=== PATIENT | female | born 1960 | race Caucasian/White ===

== ENCOUNTER 2016-09-16 10:14 | Emergency (ER) | payer BC ==
[~2016-09-16 10:14] MED LIST: ALEVE220 M1 PO; CELEXA20 MG PO; FLEXERIL 1010 MG/TAB PO; FLONASE0.05 MG/AC NS; HCTZ/LISINOPRIL1 TA1 PO; KLONOPIN1 MG PO; LOW DOSE ASPIRI81 MG PO; MULTI VITAMINS1 TAB PO; PREDNISONE20 M1 PO; PRILOSEC 20MG20 MG PO; RT ALBUTEROL I6.8 GM IH; STOOL SOFTENER100 M1 PO; ZANTAC 150MG T150 MG PO; ZOCOR 40MG40 MG PO; ZYRTEC10 MG PO; [UNRECOGNIZED DRUG - OTHER] PO
[2016-09-16] MEDS ORDERED: NORCO 325 MG-51 TAB PO (11:42)
[2016-12-18] MEDS ORDERED: HYDROCHLOROTHIA1 T15 PO (08:54)
[2016-12-18] MEDS ORDERED: CELEXA 20MG20 MG/TA1 PO (08:55)
[2016-12-18] MEDS ORDERED: CYCLOBENZAPRINE10 M1 PO (08:55)
[2016-12-18] MEDS ORDERED: SIMVASTATIN40 M1 PO (08:55)
[2016-12-18] MEDS ORDERED: OMEPRAZOLE D/R20 MG PO (08:55)
== END 2016-09-16 12:00 | disposition home or self-care (01) ==
LOC: ED 10:14
DX: T20.10XA Burn of first degree of head, face, and neck, unspecified site, initial encounter (principal); X15.0XXA Contact with hot stove (kitchen), initial encounter; Y92.010 Kitchen of single-family (private) house as the place of occurrence of the external cause
CPT/HCPCS: J1885

== ENCOUNTER → 2016-11-27 | Outpatient (CLI) | payer BC ==
[2016-09-16 12:00] VITALS: BP 174/91
[~2016-11-27] MED LIST changes: +CELEXA 20MG20 MG/TA1 PO; +CYCLOBENZAPRINE10 M1 PO; +HYDROCHLOROTHIA1 T15 PO; +NORCO 325 MG-51 TAB PO; +OMEPRAZOLE D/R20 MG PO; +SIMVASTATIN40 M1 PO
== END ==
LOC: LAB 09:06
DX: K21.0 Gastro-esophageal reflux disease with esophagitis (principal)

== ENCOUNTER → 2016-12-18 | Outpatient (CLI) | payer BC ==
[2016-12-18 08:49] VITALS: BP 150/85
== END ==
LOC: AMSURD 08:14
DX: Z01.812 Encounter for preprocedural laboratory examination (principal); Z01.810 Encounter for preprocedural cardiovascular examination

== ENCOUNTER → 2017-03-12 | Outpatient (CLI) | payer BC ==
[2016-12-18 08:49] VITALS: BP 150/85
== END ==
LOC: RAD 08:24
DX: M25.561 Pain in right knee (principal); M17.11 Unilateral primary osteoarthritis, right knee

== ENCOUNTER → 2017-08-12 | Outpatient (CLI) | payer BC ==
[2016-12-18 08:49] VITALS: BP 150/85
[2017-08-12 08:55] LABS: EOS # 0.1 (0.04-0.40); EOS % 1.9 % (1.0-5.0); HEMATOCRIT 38.2 % (37.0-47.0); HEMOGLOBIN 12.2 g/dL (12.5-16.0); LYMPH# 2.1 (1.50-4.00); MEAN CELL VOLUME 89 fl (78-100); MEAN CORPUSCULAR HEMOGLOBIN 28 pg (27-31); MEAN CORPUSCULAR HGB CONC 32 g/dL (33-37); MEAN PLATELET VOLUME 9.1 fl (7.4-10.4); MONO # 0.5 (0.20-0.80); PLATELET COUNT 310 K/mm3 (130-400); RED BLOOD COUNT 4.31 M/mm3 (4.10-5.30); RED CELL DISTRIBUTION WIDTH 13.7 % (11.5-14.5); WHITE BLOOD COUNT 5.8 K/mm3 (4.8-10.8)
[2017-08-12 08:56] LABS: PROTHROMBIN TIME 9.9 SECONDS (9.0-12.0)
[2017-08-12 09:01] LABS: ALBUMIN 4.2 g/dL (3.5-5.0); BUN/CREATININE RATIO 21.2 (6.0-26.0); CALCIUM 9.4 mg/dL (8.4-10.2); POTASSIUM 3.9 mmol/L (3.6-5.0); TOTAL BILIRUBIN 0.4 mg/dL (0.2-1.3); TOTAL PROTEIN 7.1 g/dL (6.3-8.2)
[2017-08-12 09:10] LABS: URINE APPEARANCE CLEAR; URINE BILIRUBIN NEGATIVE (NEGATIVE); URINE BLOOD NEGATIVE (NEGATIVE); URINE COLOR YELLOW; URINE GLUCOSE NEGATIVE (NEGATIVE); URINE KETONE NEGATIVE (NEGATIVE); URINE LEUKOCYTE ESTERASE NEGATIVE (NEGATIVE); URINE MUCUS PRESENT (NOT PRESENT); URINE NITRATE NEGATIVE (NEGATIVE); URINE PROTEIN(semi-quant) NEGATIVE (NEGATIVE); URINE UROBILINOGEN NORMAL (NORMAL); URINE WBC 0-1 /hpf (0-3)
== END ==
LOC: LAB 08:31
PROVIDERS: Nurse Practitioner Family
DX: Z01.818 Encounter for other preprocedural examination (principal)

== ENCOUNTER → 2017-08-14 | Outpatient (CLI) | payer BC ==
[~2017-08-14] VITALS: Ht 162.6 cm; Wt 109.1 kg
[2017-08-14 12:02] VITALS: BP 159/90
== END ==
LOC: AMSURD 11:30
DX: Z01.818 Encounter for other preprocedural examination (principal)

== ENCOUNTER → 2017-08-22 | Outpatient (CLI) | payer BC ==
[2017-08-14 12:02] VITALS: BP 159/90
== END ==
LOC: LAB 07:16
DX: I10 Essential (primary) hypertension (principal)

== ENCOUNTER → 2017-08-30 | Outpatient (CLI) | payer BC ==
[2017-08-14 12:02] VITALS: BP 159/90
== END ==
LOC: PT 08-28 11:00
DX: Z01.818 Encounter for other preprocedural examination (principal); M17.11 Unilateral primary osteoarthritis, right knee

== ENCOUNTER → 2017-09-18 | Outpatient (CLI) | payer BC ==
[2017-08-14 12:02] VITALS: BP 159/90
== END ==
LOC: RAD 08:32
DX: Z96.651 Presence of right artificial knee joint (principal)

== ENCOUNTER 2017-11-08 10:00 | Outpatient (RCR) | payer BC ==
[2017-08-14 12:02] VITALS: BP 159/90
== END 2017-11-08 10:30 | disposition still patient (30) ==
LOC: PT 10:00
DX: Z47.1 Aftercare following joint replacement surgery (principal); Z96.651 Presence of right artificial knee joint

== ENCOUNTER → 2018-05-20 | Outpatient (CLI) | payer BC ==
[2017-08-14 12:02] VITALS: BP 159/90
[2018-05-20 07:28] LABS: EOS # 0.1 (0.04-0.40); EOS % 0.7 % (1.0-5.0); HEMATOCRIT 37.3 % (37.0-47.0); HEMOGLOBIN 12.4 g/dL (12.5-16.0); LYMPH# 2.6 (1.50-4.00); MEAN CELL VOLUME 88 fl (78-100); MEAN CORPUSCULAR HEMOGLOBIN 29 pg (27-31); MEAN CORPUSCULAR HGB CONC 33 g/dL (33-37); MEAN PLATELET VOLUME 8.9 fl (7.4-10.4); MONO # 0.9 (0.20-0.80); NEU # 7.1 (1.40-6.50); PLATELET COUNT 350 K/mm3 (130-400); RED BLOOD COUNT 4.23 M/mm3 (4.10-5.30); WHITE BLOOD COUNT 10.7 K/mm3 (4.8-10.8)
[2018-05-20 07:34] LABS: ALBUMIN 4.1 g/dL (3.5-5.0); CALCIUM 9.2 mg/dL (8.4-10.2); POTASSIUM 4.2 mmol/L (3.6-5.0); TOTAL BILIRUBIN 0.6 mg/dL (0.2-1.3); TOTAL PROTEIN 7.1 g/dL (6.3-8.2)
[2018-05-20 07:52] LABS: URINE APPEARANCE CLEAR; URINE BILIRUBIN NEGATIVE (NEGATIVE); URINE BLOOD NEGATIVE (NEGATIVE); URINE COLOR YELLOW; URINE GLUCOSE NEGATIVE (NEGATIVE); URINE KETONE NEGATIVE (NEGATIVE); URINE LEUKOCYTE ESTERASE TRACE (NEGATIVE); URINE NITRATE NEGATIVE (NEGATIVE); URINE PROTEIN(semi-quant) TRACE mg/dL (NEGATIVE); URINE UROBILINOGEN NORMAL (NORMAL)
== END ==
LOC: LAB 07:08
PROVIDERS: Family Medicine
DX: I10 Essential (primary) hypertension (principal); R73.9 Hyperglycemia, unspecified

== ENCOUNTER → 2018-05-21 | Outpatient (CLI) | payer BC ==
[2017-08-14 12:02] VITALS: BP 159/90
== END ==
LOC: MAMMO 15:15
DX: Z12.31 Encounter for screening mammogram for malignant neoplasm of breast (principal)

== ENCOUNTER 2018-06-04 13:30 | Outpatient (RCR) | payer BC ==
[2017-08-14 12:02] VITALS: BP 159/90
== END 2018-08-18 | disposition home or self-care (01) ==
LOC: PT
DX: Z47.1 Aftercare following joint replacement surgery (principal); Z96.651 Presence of right artificial knee joint

== ENCOUNTER → 2018-10-01 | Outpatient (CLI) | payer BC ==
[2017-08-14 12:02] VITALS: BP 159/90
== END ==
LOC: RAD 08:33
DX: R05 Cough (principal)

== ENCOUNTER 2018-10-09 17:56 | Emergency (ER) | payer BC ==
[~2018-10-09] VITALS: Ht 160 cm; Wt 112.7 kg
[2018-10-09] MEDS ORDERED: CEPHALEXIN500 M1 PO (19:01)
[2018-10-09 19:13] VITALS: BP 149/90
== END 2018-10-09 19:13 | disposition home or self-care (01) ==
LOC: ED 17:56
DX: S61.210A Laceration without foreign body of right index finger without damage to nail, initial encounter (principal); I10 Essential (primary) hypertension; W26.0XXA Contact with knife, initial encounter; Y92.009 Unspecified place in unspecified non-institutional (private) residence as the place of occurrence of the external cause

== ENCOUNTER → 2019-01-07 | Outpatient (CLI) | payer BC ==
[~2019-01-07] MED LIST changes: +CEPHALEXIN500 M1 PO
[2019-01-07 18:21] LABS: TESTOSTERONE <13 ng/dL (13-36)
[2019-01-07 19:05] LABS: T3 TOTAL 76 ng/dL (87-178)
[2019-01-07 19:14] LABS: ESTRADIOL <10 pg/mL (()); FOLLICLE STIMULATING HORMONE 52.4 mIU/mL (()); PROGESTERONE <0.1 ng/mL (())
== END ==
LOC: LAB 07:49
DX: Z01.89 Encounter for other specified special examinations (principal)

== ENCOUNTER → 2019-05-06 | Outpatient (CLI) | payer BC ==
[~2019-05-06] MED LIST changes: +ARMOUR THYROID30 M1 PO; +KLONOPIN 0.5MG0.5 MG PO; +VYVANSE30 MG PO
[2019-05-06 10:08] LABS: EOS # 0.1 (0.04-0.40); EOS % 1.8 % (1.0-5.0); HEMATOCRIT 35.6 % (37.0-47.0); HEMOGLOBIN 11.4 g/dL (12.5-16.0); LYMPH# 1.9 (1.50-4.00); MEAN CELL VOLUME 92 fl (78-100); MEAN CORPUSCULAR HEMOGLOBIN 29 pg (27-31); MEAN CORPUSCULAR HGB CONC 32 g/dL (33-37); MONO # 0.5 (0.20-0.80); NEU # 3.4 (1.40-6.50); PLATELET COUNT 304 K/mm3 (130-400); RED BLOOD COUNT 3.89 M/mm3 (4.10-5.30); RED CELL DISTRIBUTION WIDTH 13.5 % (11.5-14.5)
[2019-05-06 10:19] LABS: ALBUMIN 3.8 g/dL (3.5-5.0); POTASSIUM 3.7 mmol/L (3.5-5.1)
[2019-05-06 10:20] LABS: CALCIUM 8.9 mg/dL (8.3-10.5)
[2019-05-06 10:21] LABS: TOTAL PROTEIN 6.3 g/dL (6.4-8.3)
[2019-05-06 10:23] LABS: TOTAL BILIRUBIN 0.2 mg/dL (0.2-1.2)
== END ==
LOC: LAB 08:53
PROVIDERS: Family Medicine
DX: Z13.220 Encounter for screening for lipoid disorders (principal); I10 Essential (primary) hypertension; R73.9 Hyperglycemia, unspecified

== ENCOUNTER 2019-05-07 11:47 | Emergency (ER) | payer BC ==
[~2019-05-07 11:47] MED LIST changes: -ARMOUR THYROID30 M1 PO; -KLONOPIN 0.5MG0.5 MG PO; -VYVANSE30 MG PO
[2019-05-07] MEDS ORDERED: ARMOUR THYROID30 M1 PO (12:18)
[2019-05-07] MEDS ORDERED: VYVANSE30 MG PO (12:18)
[2019-05-07 12:21] LABS: EOS # 0.1 (0.04-0.40); EOS % 1.5 % (1.0-5.0); HEMATOCRIT 37.1 % (37.0-47.0); HEMOGLOBIN 11.7 g/dL (12.5-16.0); LYMPH# 2.2 (1.50-4.00); MEAN CELL VOLUME 91 fl (78-100); MEAN CORPUSCULAR HEMOGLOBIN 29 pg (27-31); MEAN CORPUSCULAR HGB CONC 32 g/dL (33-37); MEAN PLATELET VOLUME 8.9 fl (7.4-10.4); MONO # 0.7 (0.20-0.80); NEU # 5.1 (1.40-6.50); PLATELET COUNT 298 K/mm3 (130-400); RED CELL DISTRIBUTION WIDTH 13.6 % (11.5-14.5); WHITE BLOOD COUNT 8.2 K/mm3 (4.8-10.8)
[2019-05-07 12:35] LABS: POTASSIUM 3.8 mmol/L (3.5-5.1); SODIUM 141 mmol/L (136-145)
[2019-05-07 12:36] LABS: CALCIUM 9.2 mg/dL (8.3-10.5)
[2019-05-07 12:38] LABS: TOTAL PROTEIN 7.1 g/dL (6.4-8.3)
[2019-05-07 12:39] LABS: CARBON DIOXIDE 25 mmol/L (22-29); GLUCOSE 123 mg/dL (65-105); TOTAL BILIRUBIN 0.3 mg/dL (0.2-1.2)
[2019-05-07 12:40] LABS: D-DIMER 0.83 mg/L FEU (0.15-0.50)
[2019-05-07 12:43] LABS: AST-SGOT 20 U/L (5-34)
[2019-05-07 12:46] LABS: ALT/SGPT 24 U/L (0-55)
[2019-05-07 12:56] LABS: TROPONIN-I < 0.03 ng/mL (<0.030)
[2019-05-07] MEDS ORDERED: KLONOPIN 0.5MG0.5 MG PO (16:31)
[2019-05-07 16:35] VITALS: BP 118/96
== END 2019-05-07 16:35 | disposition home or self-care (01) ==
LOC: ED 11:47
PROVIDERS: Nurse Practitioner Primary Care
DX: R07.9 Chest pain, unspecified (principal); I10 Essential (primary) hypertension; K21.9 Gastro-esophageal reflux disease without esophagitis; E78.5 Hyperlipidemia, unspecified; Z98.84 Bariatric surgery status; Z79.82 Long term (current) use of aspirin
CPT/HCPCS: Q9967

== ENCOUNTER → 2019-05-20 | Outpatient (CLI) | payer BC ==
[2019-05-07 16:35] VITALS: BP 118/96
[~2019-05-20] MED LIST changes: +ARMOUR THYROID30 M1 PO; +KLONOPIN 0.5MG0.5 MG PO; +VYVANSE30 MG PO
== END ==
LOC: MAMMO 08:26
DX: Z12.31 Encounter for screening mammogram for malignant neoplasm of breast (principal)

== ENCOUNTER → 2020-05-24 | Outpatient (CLI) | payer BC | LOC: MAMMO 09:10 | DX: Z12.31 Encounter for screening mammogram for malignant neoplasm of breast (principal) ==

== ENCOUNTER → 2020-07-26 | Outpatient (CLI) | payer BC ==
[2020-07-26 12:45] LABS: EOS # 0.1 (0.04-0.40); EOS % 1.6 % (1.0-5.0); HEMATOCRIT 36.1 % (37.0-47.0); HEMOGLOBIN 11.3 g/dL (12.5-16.0); LYMPH# 2.4 (1.50-4.00); MEAN CELL VOLUME 89 fl (78-100); MEAN CORPUSCULAR HEMOGLOBIN 28 pg (27-31); MEAN CORPUSCULAR HGB CONC 31 g/dL (33-37); MEAN PLATELET VOLUME 8.6 fl (7.4-10.4); MONO # 0.6 (0.20-0.80); NEU # 3.9 (1.40-6.50); PLATELET COUNT 339 K/mm3 (130-400); RED BLOOD COUNT 4.04 M/mm3 (4.10-5.30); RED CELL DISTRIBUTION WIDTH 13.9 % (11.5-14.5)
[2020-07-26 13:02] LABS: ALBUMIN 4.1 g/dL (3.4-4.8)
[2020-07-26 13:04] LABS: CALCIUM 9.6 mg/dL (8.3-10.5)
[2020-07-26 13:05] LABS: TOTAL PROTEIN 7.3 g/dL (6.2-8.1)
[2020-07-26 13:07] LABS: TOTAL BILIRUBIN 0.3 mg/dL (0.2-1.2)
== END ==
LOC: LAB 12:29 → AMSURD 12:29 → RAD 12:29
PROVIDERS: Family Medicine
DX: Z00.00 Encounter for general adult medical examination without abnormal findings (principal); E78.5 Hyperlipidemia, unspecified; R73.03 Prediabetes

== ENCOUNTER → 2020-08-10 | Outpatient (CLI) | payer BC | LOC: LAB 12:44 | DX: M79.10 Myalgia, unspecified site (principal); R09.81 Nasal congestion; R19.7 Diarrhea, unspecified; R53.83 Other fatigue; Z20.828 Contact with and (suspected) exposure to other viral communicable diseases ==

== ENCOUNTER → 2021-01-31 | Outpatient (CLI) | payer BC | LOC: LAB 07:47 | DX: E11.9 Type 2 diabetes mellitus without complications (principal) ==

== ENCOUNTER → 2021-05-25 | Outpatient (CLI) | payer BC | LOC: RAD 11:13 | DX: R05 Cough (principal); R07.81 Pleurodynia ==

== ENCOUNTER → 2021-05-30 | Outpatient (CLI) | payer BC | LOC: MAMMO 14:54 | DX: Z12.31 Encounter for screening mammogram for malignant neoplasm of breast (principal) ==

== ENCOUNTER → 2021-06-19 | Day surgery (SDC) | payer BC | LOC: MSO 07:21 | DX: Z12.11 Encounter for screening for malignant neoplasm of colon (principal); I10 Essential (primary) hypertension; G47.33 Obstructive sleep apnea (adult) (pediatric); K21.9 Gastro-esophageal reflux disease without esophagitis; M79.7 Fibromyalgia; E11.9 Type 2 diabetes mellitus without complications; F41.9 Anxiety disorder, unspecified; F32.9 Major depressive disorder, single episode, unspecified; Z86.010 Personal history of colon polyps; Z79.899 Other long term (current) drug therapy; Z79.84 Long term (current) use of oral hypoglycemic drugs | CPT/HCPCS: 00812; J2704; J7120 ==

== ENCOUNTER → 2021-06-20 | Outpatient (CLI) | payer BC | LOC: AMSURD 11:24 | DX: I10 Essential (primary) hypertension (principal) ==

== ENCOUNTER → 2021-10-10 | Outpatient (CLI) | payer BC | LOC: RAD 07:15 | DX: R10.11 Right upper quadrant pain (principal) ==

== ENCOUNTER → 2022-01-30 | Outpatient (CLI) | payer BC ==
[2022-01-30 07:52] LABS: BASO # 0.03 K/mm3 (0.02-0.10); EOS # 0.13 K/mm3 (0.04-0.40); EOS % 2.4 % (1.0-5.0); HEMATOCRIT 37.4 % (37.0-47.0); HEMOGLOBIN 11.9 g/dL (12.5-16.0); LYMPH# 2.04 K/mm3 (1.50-4.00); MEAN CELL VOLUME 89 fl (78-100); MEAN CORPUSCULAR HEMOGLOBIN 28 pg (27-31); MEAN CORPUSCULAR HGB CONC 32 g/dL (33-37); MEAN PLATELET VOLUME 8.9 fl (7.4-10.4); MONO # 0.55 K/mm3 (0.20-0.80); NEU # 2.55 K/mm3 (1.40-6.50); PLATELET COUNT 332 K/mm3 (130-400); RED BLOOD COUNT 4.21 M/mm3 (4.10-5.30); RED CELL DISTRIBUTION WIDTH 13.5 % (11.5-14.5); WHITE BLOOD COUNT 5.3 K/mm3 (4.8-10.8)
[2022-01-30 08:02] LABS: POTASSIUM 3.8 mmol/L (3.5-5.1)
[2022-01-30 08:03] LABS: CALCIUM 9.2 mg/dL (8.3-10.5)
[2022-01-30 08:05] LABS: TOTAL PROTEIN 6.9 g/dL (6.2-8.1)
[2022-01-30 08:06] LABS: TOTAL BILIRUBIN 0.3 mg/dL (0.2-1.2)
[2022-01-30 08:11] LABS: MAGNESIUM 2.25 mg/dL (1.60-2.60)
[2022-01-30 22:13] LABS: HOMOCYSTEINE SERUM OR PLASMA 7.7 umol/L (4.0-14.0)
[2022-01-30 22:23] LABS: CORTISOL RANDOM 9 ug/dL (3-20); ESTRADIOL 10 pg/mL (()); PROGESTERONE <0.1 ng/mL (()); T3 FREE 3.1 pg/mL (1.7-3.7)
[2022-01-31 17:23] LABS: INSULIN 30 uIU/mL (2-23)
[2022-02-02 18:44] LABS: IODINE 56 ng/mL (40-92)
[2022-02-06 15:36] LABS: ESTRONE-SERUM 19 pg/mL (())
== END ==
LOC: LAB 07:05
PROVIDERS: Urology
DX: Z79.890 Hormone replacement therapy (principal)

== ENCOUNTER → 2023-06-12 | Outpatient (CLI) | payer BC ==
[~2023-06-12] MED LIST changes: +COZAAR25 M1 PO; +DESVENLAFAXINE100 M3 PO; +HYDROCHLOROTH12.5 M1 PO; +PROPRANOLOL HCL80 M4 PO
== END ==
LOC: RAD 08:47
DX: M25.562 Pain in left knee (principal); Z96.652 Presence of left artificial knee joint

== ENCOUNTER 2023-07-03 07:47 | Outpatient (RCR) | payer BC | END 2023-08-01 | disposition home or self-care (01) | LOC: PT | DX: M17.12 Unilateral primary osteoarthritis, left knee (principal); Z96.652 Presence of left artificial knee joint ==

== ENCOUNTER 2023-08-02 08:00 | Outpatient (RCR) | payer BC | END 2023-09-01 | disposition home or self-care (01) | LOC: PT | DX: M17.12 Unilateral primary osteoarthritis, left knee (principal); Z96.652 Presence of left artificial knee joint ==

== ENCOUNTER → 2023-10-28 | Outpatient (CLI) | payer BC | LOC: RAD 08:25 | DX: M24.232 Disorder of ligament, left wrist (principal); M19.032 Primary osteoarthritis, left wrist ==

== ENCOUNTER → 2024-02-07 | Outpatient (CLI) | payer BC | LOC: MAMMO 09:36 | DX: Z12.31 Encounter for screening mammogram for malignant neoplasm of breast (principal) ==